=== PATIENT | female | born 1995 | race Caucasian/White ===

== ENCOUNTER 2016-09-18 20:31 | Emergency (ER) | payer BC, OTHER ==
[2016-09-18 21:53] VITALS: BP 127/68
[2016-09-18] MEDS ORDERED: Penicillin VK TAB* 250 MG PO ONE (22:15)
[2016-09-18] MEDS ORDERED: HYDROcodone/ACETAMIN 5-325 MG* 1 TAB PO ONE (22:16)
--- NOTE | 2016-09-18 22:23 | UC ---
Dental HPI - HPI Summary HPI Summary: Patient arrives to ED with CC of pain and swelling over left lower molar radiating to the jaw and ear. Denies trismus, drooling or dysphagia. Pain is 7 /10, sharp and throbbing. Denies airway compromise or SOB. Denies ear pain, eye pain, blurry vision or double vision. Otherwise healthy. Pain is worse with chewing and cold drinks, better with ibuprofen, but only improves slightly. Patient denies dental care for several years. She states her molar has been growing in and has been causing pain for years, but this is the fist time she has had associated swelling. - History of Current Complaint Chief Complaint: UCDentalProblem Stated Complaint: JAW PAIN Time Seen by Provider: 09/18/16 22:08 Hx Obtained From: Patient Hx Last Menstrual Period: 2 weeks ?: No Onset/Duration: Gradual Onset Severity: Moderate Pain Intensity: 7 Pain Scale Used: 0-10 Numeric Aggravating: Nothing - Allergies/Home Medications Allergies/Adverse Reactions: Allergies Allergy/AdvReac Type Severity Reaction Status Date / Time No Known Allergies Allergy Verified 09/18/16 21:53 Home Medications: Home Medications Ibuprofen TAB* [Advil TAB*] 600 mg PO Q3H PRN 09/18/16 [History Confirmed ] PMH/Surg Hx/FS Hx/Imm Hx Previously Healthy: Yes - Surgical History Surgical History: None - Family History Known Family History: Positive: Hypertension - Social History Occupation: Employed Full-time Lives: With Family Alcohol Use: Occasionally Substance Use Type: None Smoking Status (MU): Never Smoked Tobacco Review of Systems Constitutional: Negative ENT: Dental Pain, Ear Ache Respiratory: Negative Genitourinary: Negative Motor: Negative Musculoskeletal: Negative Neurological: Negative Psychological: Negative All Other Systems Reviewed And Are Negative: Yes Physical Exam Triage Information Reviewed: Yes Appearance: Well-Appearing, No Pain Distress, Well-Nourished Vital Signs: Initial Vital Signs Temp 99.2 F 09/18/16 21:46 Pulse 80 09/18/16 21:46 Resp 18 09/18/16 21:46 BP 127/68 09/18/16 21:46 Vital Signs Reviewed: Yes Eye Exam: Normal Eyes: Positive: Conjunctiva Clear ENT Exam: Normal ENT: Positive: Normal ENT inspection, Hearing grossly normal Dental Exam: Normal Neck exam: Normal Neck: Positive: Supple, Nontender, No Lymphadenopathy Respiratory Exam: Normal Respiratory: Positive: Chest non-tender Cardiovascular Exam: Normal Cardiovascular: Positive: RRR Musculoskeletal Exam: Normal Musculoskeletal: Positive: Strength Intact, ROM Intact Neurological Exam: Normal Neurological: Positive: Alert Psychological Exam: Normal Psychological: Positive: Normal Response To Family, Age Appropriate Behavior Skin Exam: Normal Dental Complaint Course/Dx - Course Course Of Treatment: No dental abscess or lesions seen over area of concern. Erythema at site of pain. Swelling over left lower mandible and cheek. No drainage from area. Pain on palpation over mandible. No TMJ tenderness. No pain with opening and closing mouth. Poor outpatient dental care. Will treat for possible dental infection/abscess based on symptoms of pain and radiation to jaw and ear. No allergies. Will treat with Keflex. Patient to follow up immediately with dentist. - Differential Dx/Diagnosis Differential Diagnosis/Dx: Dental Abscess, Dental Caries, Fractured Tooth, Odontogenic Pain Provider Diagnoses: DENTAL INFECTION Discharge - Discharge Plan Condition: Stable Disposition: HOME Prescriptions: HYDROcodone/ACETAMIN 5-325 MG* [[place] 5-325 TAB*] 1 tab PO Q4H PRN #16 tab MDD 6 PRN Reason: Pain Penicillin VK TAB* [Penicillin VK 250 mg Tab*] 500 mg PO QID #28 tab MDD 4 Patient Education Materials: Dental Abscess (ED) Referrals: Non Staff,Doctor [Primary Care Provider] - Additional Instructions: FOLLOW UP WITH YOUR DENTIST YOU MAY NEED TO HAVE THE WISDOM TEETH PULLED. You have been diagnosed with dental pain with possible infection: Antibiotics as prescribed to you. Salt water rinses several times per day will improve healing time. Ibuprofen 600mg three times daily with meals for discomfort. Follow up with a dentist for routine care to prevent recurrence of infections. If fever, worsening pain or swelling develops, see your PCP, dentist or come back to the Emergency Department. Images Dental: 1 - pain and swelling of cheek
== END 2016-09-18 22:40 | disposition home or self-care (01) ==
LOC: UCCORT 20:31
DX: K04.7 Periapical abscess without sinus (principal)
CPT/HCPCS: 99212; A9270-GY; G0463

== ENCOUNTER 2016-10-10 13:13 | Emergency (ER) | payer BC, OTHER ==
[2016-10-10 13:45] VITALS: BP 117/80
--- NOTE | 2016-10-10 13:54 | UC ---
Eye Complaint HPI - History of Current Complaint Chief Complaint: Jesús Stated Complaint: EYE COMPLAINT Time Seen by Provider: 10/10/16 13:31 Hx Obtained From: Patient Hx Last Menstrual Period: 09/13/16 Onset/Duration: Gradual Onset Timing: Constant Severity Initially: Mild Severity Currently: Mild Aggravating Factor(s): Nothing Alleviating Factor(s): Nothing Associated Signs And Symptoms: Positive: Drainage (Purulent). Negative: Photophobia, Vision Impairment Bilateral, Vision Impairment Right, Vision Impairment Left, Fever, Swelling - Allergies/Home Medications Allergies/Adverse Reactions: Allergies Allergy/AdvReac Type Severity Reaction Status Date / Time No Known Allergies Allergy Verified 10/10/16 13:32 Home Medications: Home Medications Eye Drops 1 drop SEE INSTRUCTIONS 10/10/16 [History] PMH/Surg Hx/FS Hx/Imm Hx Endocrine History Of: Denies: Diabetes - Surgical History Surgical History: None - Family History Known Family History: Positive: Hypertension - Social History Occupation: Student Alcohol Use: Occasionally Substance Use Type: None Smoking Status (MU): Never Smoked Tobacco - Immunization History Most Recent Influenza Vaccination: NONE Most Recent Tetanus Shot: UTD Most Recent Pneumonia Vaccination: N/A Review of Systems All Other Systems Reviewed And Are Negative: Yes Physical Exam Triage Information Reviewed: Yes Appearance: Well-Appearing, No Pain Distress, Well-Nourished Vital Signs: Initial Vital Signs Temp 98.5 F 10/10/16 13:34 Pulse 98 10/10/16 13:34 Resp 18 10/10/16 13:34 BP 117/80 10/10/16 13:34 Pulse Ox 100 10/10/16 13:34 Vital Signs Reviewed: Yes Eye Exam: Other - mild inflammation on the left without any current discharge. no swelling or pre auricular lymph nodes. Eyes: Positive: Conjunctiva Inflamed ENT Exam: Normal Neck exam: Normal Neck: Positive: Supple, Nontender, No Lymphadenopathy. Negative: Nuchal Rigidity Respiratory Exam: Normal Cardiovascular Exam: Normal Abdominal Exam: Normal Musculoskeletal Exam: Normal Neurological Exam: Normal Neurological: Positive: Alert, Muscle Tone Normal. Negative: Fatigued Psychological Exam: Normal Skin Exam: Normal Skin: Negative: rashes Eye Complaint Course/Dx - Differential Dx/Diagnosis Provider Diagnoses: conjunctivitis Discharge - Discharge Plan Condition: Good Disposition: HOME Prescriptions: Sulfacetamide 10 % OPTH.IFEOMA* [Sulamyd 10% Opth*] 1 drop BOTH EYES QID #1 btl Patient Education Materials: Conjunctivitis (ED) Referrals: Non Staff,Doctor [Primary Care Provider] -
== END 2016-10-10 14:00 | disposition home or self-care (01) ==
LOC: UCCORT 13:13
DX: H10.32 Unspecified acute conjunctivitis, left eye (principal)
CPT/HCPCS: 99212; G0463

== ENCOUNTER 2016-10-23 09:42 | Emergency (ER) | payer BC, OTHER ==
[2016-10-23 10:13] VITALS: BP 124/82
--- NOTE | 2016-10-23 10:28 | UC ---
Throat Pain/Nasal Levon HPI - HPI Summary HPI Summary: ST, nasal congestion, bilat ear pain with swallowing, and sinus congestion starting 3 days ago. Denies fever, trouble breathing, or drainage from the ears. - History of Current Complaint Chief Complaint: UCGeneralIllness Stated Complaint: SINUS,SORE THROAT,EAR PAIN Time Seen by Provider: 10/23/16 10:11 Hx Obtained From: Patient Hx Last Menstrual Period: 3 wks ago ?: No Onset/Duration: Gradual Onset, Lasting Days Severity: Mild Cough: Productive Associated Signs & Symptoms: Positive: Sinus Discomfort, Nasal Discharge. Negative: Wheezing, Fever, Vomiting, Rash - Allergies/Home Medications Allergies/Adverse Reactions: Allergies Allergy/AdvReac Type Severity Reaction Status Date / Time No Known Allergies Allergy Verified 10/23/16 10:09 Home Medications: Home Medications Desogestrel-Ethinyl Estradiol [Azurette 0.15-0.02/0.01 mg (/)] 1 tab PO BEDTIME 10/23/16 [History Confirmed 10/23/16] Fluticasone NASAL SPRAY 50MCG* [Flonase NASAL SPRAY 50MCG*] 2 spray BOTH NARES BEDTIME 10/23/16 [History Confirmed 10/23/16] PMH/Surg Hx/FS Hx/Imm Hx Endocrine History Of: Denies: Diabetes - Surgical History Surgical History: None - Family History Known Family History: Positive: Hypertension - Social History Occupation: Student Lives: Alone Alcohol Use: Occasionally Substance Use Type: None Smoking Status (MU): Never Smoked Tobacco - Immunization History Most Recent Influenza Vaccination: NONE Most Recent Tetanus Shot: UTD Most Recent Pneumonia Vaccination: N/A Review of Systems Constitutional: Negative Skin: Negative Eyes: Negative ENT: Sore Throat, Nasal Discharge Respiratory: Cough Cardiovascular: Negative Gastrointestinal: Negative Genitourinary: Negative Motor: Negative Neurovascular: Negative Musculoskeletal: Negative Neurological: Negative Psychological: Negative All Other Systems Reviewed And Are Negative: Yes Physical Exam Triage Information Reviewed: Yes Appearance: Well-Appearing, No Pain Distress, Well-Nourished Vital Signs: Initial Vital Signs Temp 99.1 F 10/23/16 10:10 Pulse 108 10/23/16 10:10 Resp 16 10/23/16 10:10 BP 124/82 10/23/16 10:10 Pulse Ox 100 10/23/16 10:10 Vital Signs Reviewed: Yes Eye Exam: Normal Eyes: Positive: Conjunctiva Clear ENT: Positive: Hearing grossly normal, Pharynx normal, Nasal congestion, TMs normal Dental Exam: Normal Neck exam: Normal Neck: Positive: Supple, Nontender, No Lymphadenopathy Respiratory Exam: Normal Respiratory: Positive: Chest non-tender, Lungs clear, Normal breath sounds, No respiratory distress, No accessory muscle use Cardiovascular Exam: Normal Cardiovascular: Positive: RRR, No Murmur Musculoskeletal Exam: Normal Neurological Exam: Normal Neurological: Positive: Alert Psychological Exam: Normal Skin Exam: Normal Throat Pain/Nasal Course/Dx - Differential Dx/Diagnosis Provider Diagnoses: URI, likely viral Discharge - Discharge Plan Condition: Stable Disposition: HOME Patient Education Materials: Upper Respiratory Infection (ED) Additional Instructions: a DECONGESTANT can help with your stuffiness and sinuses. The most effective decongestant is Pseudoephedrine (Sudafed or generic), but you need to ask the pharmacist as it is kept behind the counter. ANTIHISTAMINES are nearly always found in "nighttime" medicines for their sedating properties (such as Nyquil). Examples are Diphenhydramine HCL, Doxylamine, and Chlorpheniramine. They may help if you are having profuse clear drainage from the nose. an EXPECTORANT helps thin mucous in the nose and in the chest, making it easier to clear out. Expectorants are in most combination cough/cold remedies and should be taken with plenty of water. Guaifenesin is the most common expectorant , and comes in pill or liquid form (Mucinex is an extended-release form of guaifenesin). a COUGH SUPPRESSANT reduces the body's cough reflex. Dextromethorphan is in over -the-counter products, but sometimes narcotics (such as codeine or hydrocodone) are used for their cough suppressant properties. Call or return if you develop increasing fever, shortness of breath, chest pain , bloody sputum, or otherwise worsen. If you have not improved at all after several days, contact your primary care physician or return here.
== END 2016-10-23 10:29 | disposition home or self-care (01) ==
LOC: UCCORT 09:42
DX: J06.9 Acute upper respiratory infection, unspecified (principal)
CPT/HCPCS: 99211; G0463